=== PATIENT | male | born 1970 | race Caucasian/White ===

== ENCOUNTER → 2018-01-06 | Outpatient (CLI) | payer OTHER ==
[2018-01-07 13:25] LABS: Alt. alternata IgE Class CLASS 0; Alternaria alternata IgE <0.35 kU/L (<0.35); Asperg. fumagatus IgE <0.35 kU/L (<0.35); Asperg. fumagatus IgE Class CLASS 0; Aureo. pullulans IgE <0.35 kU/L (<0.35); Birch(Com.Silvr) IgE <0.35 kU/L (<0.35); Birch(Com.Silvr) IgE Class CLASS 0; Candida albicans IgE Class CLASS 0; Cat Epith & Dander IgE <0.35 kU/L (<0.35); Cat Epith & Dander IgE Class CLASS 0; Clad herbarum IgE <0.35 kU/L (<0.35); Cockroach IgE <0.35 kU/L (<0.35); Com. Pigweed IgE <0.35 kU/L (<0.35); Com. Pigweed IgE Class CLASS 0; Cottonwood IgE <0.35 kU/L (<0.35); Cow's Milk IgE Class CLASS 0; Dermato. Pteronyssinus IgE <0.35 kU/L (<0.35); Dermato. farinae IgE <0.35 kU/L (<0.35); Dermato. farinae IgE Class CLASS 0; Dog Dander IgE <0.35 kU/L (<0.35); Egg White IgE <0.35 kU/L (<0.35); English Plantain IgE Class CLASS 0; Epicoccum purpurascens Class CLASS 0; Epicoccum purpurascens IgE <0.35 kU/L (<0.35); Johnson Grass IgE Class CLASS 0; Lamb's Quarter IgE <0.35 kU/L (<0.35); Lamb's Quarter IgE Class CLASS 0; Maple (Box Elder) IgE <0.35 kU/L (<0.35); Maple (Box Elder) IgE Class CLASS 0; Mucor racemosus IgE <0.35 kU/L (<0.35); Mucor racemosus IgE Class CLASS 0; Oak IgE <0.35 kU/L (<0.35); Peanut IgE <0.35 kU/L (<0.35); Potato IgE <0.35 kU/L (<0.35); Potato IgE Class CLASS 0; Rhizopus nigricans IgE <0.35 kU/L (<0.35); S.rostrata/Helminth Class CLASS 0; S.rostrata/Helminth IgE <0.35 kU/L (<0.35); Soybean IgE <0.35 kU/L (<0.35); Sycamore(Mpl.Lf) IgE <0.35 kU/L (<0.35); Timothy Grass IgE <0.35 kU/L (<0.35); Walnut Tree IgE <0.35 kU/L (<0.35); Walnut Tree IgE Class CLASS 0; White Ash IgE Class CLASS 0
== END | disposition home or self-care (01) ==
LOC: LABWHC1 14:28
PROVIDERS: ATTEND Otolaryngology
DX: J30.89 Other allergic rhinitis (principal)
CPT/HCPCS: 36415; 86003

== ENCOUNTER → 2018-06-22 | Outpatient (CLI) | payer OTHER ==
--- NOTE | 2018-06-22 22:06 | CT ---
EXAMINATION TYPE: CT sinus wo con DATE OF EXAM: 06/22/2018 COMPARISON: NONE HISTORY: Cough and congestion, headaches, fatigue for 6 months per patient. Chronic sinusitis per andres er. CT DLP: 422.4 mGycm. Automated Exposure Control for Dose Reduction was Utilized. TECHNIQUE: CT scan of the sinuses is performed without contrast, axial images are obtained, coronal r eformatted images are also reviewed. FINDINGS: There is mild to minimal mucosal thickening inferiorly in the right maxillary sinus. There is mild mucosal thickening in the anterior ethmoid sinuses bilaterally and mild mucosal thickening in feriorly in the bilateral frontal sinuses, right greater than left. No suspicious opacification or ai r-fluid levels is present bilaterally. The ostiomeatal complex is patent bilaterally on coronal imag e 22. Visualized portion of mastoid air cells show no abnormal opacification. The globes are intact bilate rally. IMPRESSION: Mild chronic paranasal sinus disease. No acute sinusitis.
== END ==
LOC: RADCTMAIN 16:44
PROVIDERS: ATTEND Family Medicine
DX: J32.9 Chronic sinusitis, unspecified (principal)
CPT/HCPCS: 70486

== ENCOUNTER → 2018-07-24 | Outpatient (CLI) | payer OTHER ==
[2018-07-24 08:27] LABS: Blood Urea Nitrogen 14 mg/dL (9-20)
--- NOTE | 2018-07-24 08:49 | CT ---
EXAMINATION TYPE: CT chest wo/w con DATE OF EXAM: 07/24/2018 COMPARISON: None HISTORY: hemoptysis,cough CT DLP: 926.6 mGycm Automated exposure control for dose reduction was used. CONTRAST: CT scan of the chest is performed without and with IV Contrast, patient injected with 100 mL of Isovu e 300. FINDINGS: LUNGS: The lungs are grossly clear, there is no concerning parenchymal mass or nodule identified. T here is no pleural effusion or pneumothorax seen. The tracheobronchial tree is patent. MEDIASTINUM: There are no greater than 1 cm hilar or mediastinal lymph nodes. No pericardial effusi on is seen. Thoracic aorta is of normal caliber. The heart is mildly enlarged. 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 Pacer device is in place. UPPER ABDOMEN: No significant abnormality appreciated. OTHER: No additional significant abnormality is seen. IMPRESSION: 1. No significant abnormality to account for the patient's symptoms.
--- NOTE | 2018-07-24 08:55 | FL ---
ESOPHOGRAM. HISTORY: Dysphagia Esophagram was performed per the air contrast technique. The patient swallowed barium and effervesce nt crystals without difficulty or delay. Esophageal peristalsis and motility appear to be within normal limits. There is no evidence for filling defect, mass or diverticulum. No hiatal hernia seen. Subsequently single contrast cervical esophagram was performed which fails demonstrate evidence for a spiration penetration or mass. There is large of ventral spur noted at C5-6 impressing upon the poste rior margin of the cervical esophagus resulting in 30-40% luminal narrowing. IMPRESSION: There is large of ventral spur noted at C5-6 impressing upon the posterior margin of the cervical esophagus resulting in 30-40% luminal narrowing.
== END | disposition home or self-care (01) ==
LOC: RADCTMAIN 07:33
PROVIDERS: ATTEND Otolaryngology
DX: M46.02 Spinal enthesopathy, cervical region (principal); K22.2 Esophageal obstruction; K21.9 Gastro-esophageal reflux disease without esophagitis; J04.0 Acute laryngitis; J32.9 Chronic sinusitis, unspecified; R04.2 Hemoptysis
CPT/HCPCS: 82565; 84520; 74220; 71270; 36415; Q9967

== ENCOUNTER 2018-08-27 09:17 | Day surgery (SDC) | payer OTHER ==
[2018-08-25 10:12] VITALS: BMI 29.8
[~2018-08-27 09:17] MED LIST: LACTATED RINGERS 1,000 ML IV SCH; LIDOCAINE 1% 20 ML VIAL (10MG/ML) FOR IV START INTRADERMA PRN
[2018-08-27 10:10] VITALS: TEMP 97.9
[2018-08-27] MEDS ORDERED: fentaNYL (PF) 50 MCG/ML 2 ML AMP ONE (10:43)
[2018-08-27] MEDS ORDERED: PROPOFOL 10 MG/ML 20 ML VIAL IV ONE (10:43)
[2018-08-27] MEDS ORDERED: LIDOCAINE 1% INJ 10MG/ML (20 ML MDV) ONE (10:43)
--- NOTE | 2018-08-27 11:11 | P.PCN ---
Date of Procedure: 08/27/18 Procedure(s) Performed: Procedure: Colonoscopy. Preoperative diagnosis: Screening for neoplasia. Postoperative diagnosis: Sigmoid diverticulosis with no evidence of acute diverticulitis, strictures, polyps or cancer. Preparation: HalfLytely prep. Sedation: Was provided by anesthesia. Brief clinical history: The patient is a 48-year-old male who is scheduled for this evaluation for screening for neoplasia age being his risk factor, in addition to history of polyps. The patient had an episode of acute diverticulitis around 12 years ago and at that time he had a polyp removed. He had a repeat exam around 5 years ago which did not show any polyps. The patient has no abdominal complaints at this time or any bleeding or anemia. Procedure: With the patient on his left lateral decubitus position and after informed consent and adequate sedation, the perianal area was inspected and it did not show any fissures or fistulas. There were no masses felt on digital rectal examination. The Olympus CFH 190L video colonoscope was then inserted in the rectum in the usual fashion and advanced to the cecum. There were multiple diverticular orifices seen scattered in the sigmoid with no evidence of acute diverticulitis or strictures. There was pinpoint submucosal hemorrhages in the distal sigmoid in the vicinity of diverticular orifices that could represent evidence of a prior bout of diverticulitis. No polyps or tumors were seen. I retroflexed the endoscope in the rectum before the endoscope was withdrawn. The patient tolerated the procedure well. Plan: The patient was reassured. Discussed dietary measures. He will follow up with you as planned and I recommended repeat exam in 5 years.
[2018-08-27 11:27] VITALS: BP 133/79; PULSE 60; RESP 16
== END 2018-08-27 12:21 | disposition home or self-care (01) ==
LOC: ORWHC2ENDO 09:17
DX: Z12.11 Encounter for screening for malignant neoplasm of colon (principal); K57.30 Diverticulosis of large intestine without perforation or abscess without bleeding; K92.2 Gastrointestinal hemorrhage, unspecified; Z86.010 Personal history of colon polyps; I10 Essential (primary) hypertension; J44.9 Chronic obstructive pulmonary disease, unspecified; Z95.0 Presence of cardiac pacemaker; Z95.2 Presence of prosthetic heart valve; Z79.82 Long term (current) use of aspirin; Z79.899 Other long term (current) drug therapy; Z88.8 Allergy status to other drugs, medicaments and biological substances
CPT/HCPCS: J2001; J3010; J2704; G0105

== ENCOUNTER → 2018-11-11 | Outpatient (CLI) | payer OTHER ==
--- NOTE | 2018-11-12 09:44 | USB ---
Reason for exam: clinical finding. Indicated problem(s): palpable abnormality in the right breast. Physical Findings: Nurse Summary: felt lump x 1 month, no pain (nurse kp). US Breast BILAT Right complete breast ultrasound includes all four quadrants, the retroareolar region and axilla. Finding demonstrates a 11 x 3 x 11mm oval, solid, hyperechoic lesion at 9 o'clock BB, a 8 x 4 x 8mm oval, solid, hyperechoic lesion at 11 o'clock and a 9 x 5 x 7mm oval, solid, hyperechoic lesion at 11 o'clock. Left complete breast ultrasound includes all four quadrants, the retroareolar region and axilla. Finding demonstrates a 9 x 4 x 10mm oval, solid, hyperechoic lesion at 7 o'clock and a 14mm oval, solid lymph node at the axilla tail, enlarged, diffusely hyperechoic. All appear as lipomas. These results were verbally communicated with the patient and result sheet given to the patient on 11/11/18. ASSESSMENT: Suspicious, BI-RAD 4 RECOMMENDATION: Ultrasound core biopsy of the left breast. (Considering this is enlarged, atypical and clinical history of night sweats, re-evaluate for decrease in size prior to biopsy could be considered) Called with mammographic findings and has scheduled an appointment for the patient for 11/11/18 at 4:[address] Almonte. PRELIMINARY REPORT CALLED AND FAXED TO DR. ALMONTE ON 11/12/18.
== END | disposition home or self-care (01) ==
LOC: RADUSWWP 13:57
PROVIDERS: ATTEND Family Medicine
DX: N63.10 Unspecified lump in the right breast, unspecified quadrant (principal); N63.20 Unspecified lump in the left breast, unspecified quadrant

== ENCOUNTER → 2018-12-14 | Outpatient (CLI) | payer OTHER ==
[2018-12-14 13:42] LABS: Basophils % (A) 1 %; Eosinophils # (A) 0.1 k/uL (0-0.7); Eosinophils % (A) 1 %; HCT 44.2 % (39.0-53.0); HGB 14.6 gm/dL (13.0-17.5); Lymphocytes # (A) 1.4 k/uL (1.0-4.8); Lymphocytes % (A) 20 %; MCH 28.8 pg (25.0-35.0); MCV 87.4 fL (80.0-100.0); Mean Platelet Volume 7.2; Monocytes # (A) 0.5 k/uL (0-1.0); Monocytes % (A) 7 %; Neutrophils # (A) 4.8 k/uL (1.3-7.7); Neutrophils % (A) 70 %; Platelet Count 204 k/uL (150-450); RBC 5.05 m/uL (4.30-5.90); RDW 14.2 % (11.5-15.5); WBC 6.9 k/uL (3.8-10.6)
[2018-12-15 13:01] LABS: Lyme IgG/IgM 0.09 Index
== END ==
LOC: LABWHC1 11:53
PROVIDERS: ATTEND Otolaryngology
DX: R59.1 Generalized enlarged lymph nodes (principal); R53.83 Other fatigue
CPT/HCPCS: 36415; 82378; 83615; 85025; 86611; 86618

== ENCOUNTER → 2019-06-23 | Outpatient (CLI) | payer BC, OTHER ==
--- NOTE | 2019-06-23 15:07 | XR ---
EXAM TYPE: LUMBAR SPINE X RAY SERIES COMPARISON: NONE HISTORY: Chronic pain TECHNIQUE: 4 views are submitted. FINDINGS: Alignment is anatomic. The pedicles are intact. The transverse processes are intact. There is no s pondylolysis or spondylolisthesis. Diffuse osteopenia with hypertrophic and degenerative change. Art hropathy of the left SI joint. IMPRESSION: 1. Diffuse osteopenia with multilevel mild degenerative disc disease 2. Advanced left SI joint arthropathy.
--- NOTE | 2019-06-23 15:08 | XR ---
EXAMINATION TYPE: XR cervical spine limited DATE OF EXAM: 06/23/2019 COMPARISON: NONE HISTORY: Pain TECHNIQUE: 2 views submitted FINDINGS: Lung apices clear. Cardiac device and postsurgical changes noted. Severe degenerative disc disease C5-6 and C6-C7 with large anterior hypertrophic spurring. Facet arth ropathy at these levels. Odontoid intact. Prevertebral soft tissue structures within normal limits. IMPRESSION: 1. Severe degenerative disc disease C5-6 and C6-C7 with posterior spondylosis. Recommend follow-up MR I to assess for canal stenosis.
--- NOTE | 2019-06-23 15:09 | XR ---
EXAMINATION TYPE: XR thoracic spine 2V DATE OF EXAM: 06/23/2019 COMPARISON: NONE HISTORY: Pain TECHNIQUE: 2 views submitted FINDINGS: Multilevel moderate hypertrophic and degenerative disc disease with most marked findings in volving the mid and lower thoracic spine. No compression deformities. Pedicles are intact. Heart is e nlarged there is postsurgical change with cardiac device. Correlate for previous cardiac valve replac ement surgery. IMPRESSION: 1. Multilevel moderate degenerative disc disease.
== END | disposition home or self-care (01) ==
LOC: RADXRYALE 14:45
PROVIDERS: ATTEND Family Medicine
DX: M51.36 Other intervertebral disc degeneration, lumbar region (principal); M47.816 Spondylosis without myelopathy or radiculopathy, lumbar region; M50.322 Other cervical disc degeneration at C5-C6 level; M47.812 Spondylosis without myelopathy or radiculopathy, cervical region; M51.34 Other intervertebral disc degeneration, thoracic region
CPT/HCPCS: 72040; 72070; 72100